=== PATIENT | female | born 1935 | race Caucasian/White ===

== ENCOUNTER 2016-08-20 15:07 | Emergency (ER) | payer BC ==
[~2016-08-20] VITALS: Ht 154.9 cm; Wt 69.0 kg
[~2016-08-20 15:07] MED LIST: ATEN-175 PO; CALC-51 PO; CHOL400C7 PO; HYDR25TA5 PO; MECL1TAB42 PO; MGNO400 PO; MULTTAB83 PO; POTA20TA13 PO; PSYL48.59 PO; SIMV20TA2 PO; TYL325X PO
[2016-08-20 15:10] VITALS: TEMP 36.4; Ht 154.9 cm; Wt 69.0 kg
[2016-08-20] MEDS ORDERED: RANI1TAB77 PO (15:23)
[2016-08-20] MEDS ORDERED: CHOL100027 PO (15:23)
[2016-08-20] MEDS ORDERED: IMD/2 PO (15:23)
[2016-08-20] MEDS ORDERED: LIDO/EPINEPHRINE/SOD BICARB 20 ML VIAL INFIL ONE (15:36)
--- NOTE | 2016-08-20 15:40 | DIAGNOSTIC IMAGING REPORT ---
LEFT FIFTH FINGER 3 VIEWS CLINICAL HISTORY: Fifth finger injury. FINDINGS: 3 views of the left fifth finger are obtained. No prior studies are available for comparison at the time of dictation. The skeletal structures are osteopenic. There is a questionable fracture through the midshaft of the fifth middle phalanx. No additional findings are concerning for fracture. There is posterior dislocation is seen at the fifth proximal interphalangeal joint with overlying soft tissue edema. Minimal arthritic change is noted at the fifth distal and a nodule joint. The fifth metacarpophalangeal joint is well-maintained. A ring is present on the fourth finger. IMPRESSION: 1. There is posterior dislocation at the fifth proximal interphalangeal joint with overlying soft tissue edema. 2. Question a fracture through the midshaft of the fifth middle phalanx. This could not be corroborated on the lateral view. 3. No additional findings are concerning for acute fracture. Electronically signed by: Norberto Trevino M.D. 08/20/2016 3:39 PM Dictated Date/Time: 08/20/2016 3:36 PM
[2016-08-20] MEDS ORDERED: XYLOCAINE 1%/SOD BICARB 20 ML VIAL INFIL ONE (15:45)
--- NOTE | 2016-08-20 15:49 | EMERGENCY ROOM VISIT NOTE ---
ED Visit Note First contact with patient: 15:14 I have seen and examined this patient with Carin Tinsley and generally agree with the treatment plan as discussed. Current/Historical Medications Scheduled Atenolol (Tenormin), 100 MG PO DAILY Calcium Carbonate-Vitamin D (Calcium), 2 TAB PO DAILY Cholecalciferol (Vitamin D 1000 Unit), 1,000 INTER.UNIT PO DAILY Hydrochlorothiazide (Hydrochlorothiazide), 12.5 MG PO DAILY Multiple Vitamin (Multi-Vitamin), 1 TAB PO DAILY Potassium Chloride Microencaps (Potassium Chloride Er), 60 MEQ PO DAILY Psyllium (Metamucil), 1 TBS PO DAILY Ranitidine HCl (Ranitidine [address]), 150 MG PO DAILYBB Simvastatin (Zocor), 20 MG PO QPM Scheduled PRN Loperamide Hcl (Imodium), 2 MG PO UD PRN for Diarrhea Meclizine Hcl (Meclizine Hcl), 25 MG PO DAILY PRN for DIZZINESS Allergies Coded Allergies: Sulfa Drugs (Verified Allergy, Unknown, "CAN'T REMEMBER, SO MANY YEARS", ) Vital Signs Date Time Temp Pulse Resp B/P Pulse Ox O2 Delivery O2 Flow Rate FiO2 08/20/16 15:10 36.4 56 18 154/71 98 Room Air Departure Information Referrals John Kinney M.D. (PCP) Patient Instructions My [facility]
--- NOTE | 2016-08-20 16:17 | DIAGNOSTIC IMAGING REPORT ---
LEFT FIFTH FINGER 3 VIEWS CLINICAL HISTORY: Postreduction examination. FINDINGS: 3 views of the left fifth finger are compared to study performed earlier the same day 08/20/2016. The skeletal structures are osteopenic. No fracture is seen. There has been episcopal of near-anatomic alignment at the fifth proximal interphalangeal joint. Minimal arthritic change is observed. Overlying soft tissue edema persists. IMPRESSION: 1. There has been successful reduction of the dislocated fifth proximal interphalangeal joint as compared to today's earlier study. 2. No fracture is identified. Electronically signed by: Norberto Trevino M.D. 08/20/2016 4:16 PM Dictated Date/Time: 08/20/2016 4:14 PM
--- NOTE | 2016-08-20 16:23 | EMERGENCY ROOM VISIT NOTE ---
ED Visit Note First contact with patient: 15:14 CHIEF COMPLAINT: Left fifth Finger injury today HISTORY OF PRESENT ILLNESS: This 80-year-old female presents the ER with chief complaint of left fifth finger injury. The patient states that she fell injuring her left fifth finger. She now states that it looks deformed. She denies any numbness and tingling in the distal portion of the finger. The patient denies any other injuries. REVIEW OF SYSTEMS: 6 system review was performed and was negative unless stated otherwise in history of present illness. PMH: The patient is healthy; hypertension SOCIAL HISTORY: The patient lives alone. The patient denies any tobacco use but admits to occasional alcohol use. PHYSICAL EXAM: Vital Signs: Were reviewed Reviewed Nurse's notes.GEN.: 80-year- old white female appears in no acute distress. MENTAL Status: Alert and oriented 3. LEFT FIFTH FINGER: There is an obvious deformity at the PIP joint of the finger with dorsal dislocation of the middle phalanx. The distal dislocated portion of the finger is pale but is sensate. Capillary refill is normal. EMERGENCY DEPARTMENT COURSE: The patient was evaluated. X-ray of the left fifth finger was ordered and interpreted by the radiologist and myself as below. LEFT FIFTH FINGER 3 VIEWS CLINICAL HISTORY: Fifth finger injury. FINDINGS: 3 views of the left fifth finger are obtained. No prior studies are available for comparison at the time of dictation. The skeletal structures are osteopenic. There is a questionable fracture through the midshaft of the fifth middle phalanx. No additional findings are concerning for fracture. There is posterior dislocation is seen at the fifth proximal interphalangeal joint with overlying soft tissue edema. Minimal arthritic change is noted at the fifth distal and a nodule joint. The fifth metacarpophalangeal joint is well-maintained. A ring is present on the fourth finger. IMPRESSION: 1. There is posterior dislocation at the fifth proximal interphalangeal joint with overlying soft tissue edema. 2. Question a fracture through the midshaft of the fifth middle phalanx. This could not be corroborated on the lateral view. 3. No additional findings are concerning for acute fracture. Electronically signed by: Norberto Trevino M.D. The patient was informed of the findings. PROCEDURE: The finger was prepped with Betadine 3. A digital block was performed using 1% buffered lidocaine. Once adequate anesthesia was obtained, The joint was reduced by applying a steady and rapid axial distraction of the dislocated portion at the PIP joint while the proximal portion was stabilized with the other hand. Postreduction the patient was able to extend the finger on her own but then it Re-dislocating. I finally got the joint stabilized. I told the patient not to move her finger until we obtained x-rays and can splint her. The patient was evaluated by Dr. Ramirez who agreed with treatment plan. Postreduction films were and were interpreted by the radiologist as below. DIAGNOSTICS:LEFT FIFTH FINGER 3 VIEWS CLINICAL HISTORY: Postreduction examination. FINDINGS: 3 views of the left fifth finger are compared to study performed earlier the same day 08/20/2016. The skeletal structures are osteopenic. No fracture is seen. There has been anabaptist of near-anatomic alignment at the fifth proximal interphalangeal joint. Minimal arthritic change is observed. Overlying soft tissue edema persists. IMPRESSION: 1. There has been successful reduction of the dislocated fifth proximal interphalangeal joint as compared to today's earlier study. 2. No fracture is identified. Electronically signed by: Norberto Trevino M.D. 08/20/2016 4:16 PM The patient was informed of the findings. The patient was placed in a cage splint and discharged home in stable condition. DIAGNOSIS: Dislocated PIP joint of the left fifth finger DISCHARGE INSTRUCTIONS & TREATMENT: Ice and elevation for 24 hours. Tylenol and/or ibuprofen as needed for pain. Keep finger in splint except for bathing until evaluated by orthopedics. Call tomorrow for follow-up appointment. Current/Historical Medications Scheduled Atenolol (Tenormin), 100 MG PO DAILY Calcium Carbonate-Vitamin D (Calcium), 2 TAB PO DAILY Cholecalciferol (Vitamin D 1000 Unit), 1,000 INTER.UNIT PO DAILY Hydrochlorothiazide (Hydrochlorothiazide), 12.5 MG PO DAILY Multiple Vitamin (Multi-Vitamin), 1 TAB PO DAILY Potassium Chloride Microencaps (Potassium Chloride Er), 60 MEQ PO DAILY Psyllium (Metamucil), 1 TBS PO DAILY Ranitidine HCl (Ranitidine [address]), 150 MG PO DAILYBB Simvastatin (Zocor), 20 MG PO QPM Scheduled PRN Loperamide Hcl (Imodium), 2 MG PO UD PRN for Diarrhea Meclizine Hcl (Meclizine Hcl), 25 MG PO DAILY PRN for DIZZINESS Allergies Coded Allergies: Sulfa Drugs (Verified Allergy, Unknown, "CAN'T REMEMBER, SO MANY YEARS", ) Vital Signs Date Time Temp Pulse Resp B/P Pulse Ox O2 Delivery O2 Flow Rate FiO2 08/20/16 15:10 36.4 56 18 154/71 98 Room Air Departure Information Referrals John Kinney M.D. (PCP) Patient Instructions My [facility]
[2016-08-20 16:51] VITALS: BP 145/86; PULSE 62; O2SAT 96
== END 2016-08-20 16:52 | disposition home or self-care (01) ==
LOC: C.EDB 15:08 → C.EDD 16:52
DX: S63.257A Unspecified dislocation of left little finger, initial encounter (principal); W19.XXXA Unspecified fall, initial encounter; I10 Essential (primary) hypertension; Z79.899 Other long term (current) drug therapy

== ENCOUNTER → 2016-11-08 | Outpatient (CLI) | payer BC ==
[~2016-11-08] MED LIST changes: +CHOL100027 PO; -CHOL400C7 PO; +IMD/2 PO; -MGNO400 PO; +RANI1TAB77 PO; -TYL325X PO
[2016-11-08 13:34] LABS: ESTIMATED AVERAGE GLUCOSE 123 mg/dl; HA1C FLAG Normal (Normal)
[2016-11-08 13:53] LABS: BLOOD UREA NITROGEN 22 mg/dl (7-18); CALCIUM 9.3 mg/dl (8.5-10.1); CARBON DIOXIDE 31 mmol/L (21-32); CHLORIDE 106 mmol/L (98-107); GLUCOSE 98 mg/dl (70-99); POTASSIUM 3.8 mmol/L (3.5-5.1); SODIUM 143 mmol/L (136-145)
== END | disposition home or self-care (01) ==
LOC: C.LABBC 10:08
PROVIDERS: ATTEND Internal Medicine Geriatric Medicine
DX: I10 Essential (primary) hypertension (principal); R73.9 Hyperglycemia, unspecified; R31.9 Hematuria, unspecified; E78.5 Hyperlipidemia, unspecified; E04.2 Nontoxic multinodular goiter

== ENCOUNTER → 2016-11-21 | Outpatient (CLI) | payer BC ==
--- NOTE | 2016-11-21 12:23 | DIAGNOSTIC IMAGING REPORT ---
THYROID ULTRASOUND CLINICAL HISTORY: Multinodular thyroid. COMPARISON STUDY: Thyroid ultrasound May 21, 2015. TECHNIQUE: Sonography of the thyroid gland was performed. FINDINGS: The right thyroid lobe measures 5.4 x 1.5 x 1.6 cm and the left lobe measures 3.8 x 1.5 x 1 cm. Note is made of a 2.1 cm echogenic nodule within the lower pole of the right thyroid lobe which is similar to exam of May 21, 2015. This nodule was biopsied on exam of July 10, 2014. A 6 mm cystic left lobe nodule has benign imaging characteristics. This is similar to prior exam. IMPRESSION: No change in several thyroid nodules since exam of May 21, 2015. Electronically signed by: Orville Anders M.D. 11/21/2016 12:22 PM Dictated Date/Time: 11/21/2016 12:20 PM
== END | disposition home or self-care (01) ==
LOC: C.ULTRBC 10:08
PROVIDERS: ATTEND Internal Medicine Geriatric Medicine
DX: E04.2 Nontoxic multinodular goiter (principal)

== ENCOUNTER → 2017-06-28 | Outpatient (CLI) | payer BC ==
[2017-06-28 13:12] LABS: BASO % 0.3 %; BASO ABS # 0.02 K/uL (0-0.2); EOS % 1.4 %; EOS ABS # 0.08 K/uL (0-0.5); HEMATOCRIT 42.5 % (37-47); IG# 0.01 K/uL (0.00-0.02); LYMPH % 35.8 %; LYMPH ABS # 2.08 K/uL (1.2-3.4); MEAN CORPUSCULAR HGB CONC 32.9 g/dl (32-36); MEAN PLATELET VOLUME 9.8 fL (7.4-10.4); MONO ABS # 0.58 K/uL (0.11-0.59); NEUT % 52.3 %; NEUT ABS # 3.04 K/uL (1.4-6.5); PLATELET COUNT 206 K/uL (130-400); RED CELL DISTRIBUTION WIDTH CV 13.2 % (11.5-14.5); RED CELL DISTRIBUTION WIDTH SD 45.2 fL (36.4-46.3); WHITE BLOOD COUNT 5.81 K/uL (4.8-10.8)
[2017-06-28 14:11] LABS: ALBUMIN 3.5 gm/dl (3.4-5.0); ALT/SGPT 22 U/L (12-78); AST/SGOT 17 U/L (15-37); BLOOD UREA NITROGEN 27 mg/dl (7-18); CALCIUM 9.4 mg/dl (8.5-10.1); CARBON DIOXIDE 30 mmol/L (21-32); CREATININE 0.91 mg/dl (0.60-1.20); GLUCOSE 91 mg/dl (70-99); POTASSIUM 3.9 mmol/L (3.5-5.1); SODIUM 138 mmol/L (136-145)
[2017-06-28 14:26] LABS: ALKALINE PHOSPHATASE 58 U/L (45-117); CHOLESTEROL 117 mg/dl (0-200); LDL CHOLESTEROL CALCULATED 40 mg/dl; TOTAL PROTEIN 7.4 gm/dl (6.4-8.2)
== END | disposition home or self-care (01) ==
LOC: C.LABBC 10:14
PROVIDERS: ATTEND Internal Medicine Geriatric Medicine
DX: I10 Essential (primary) hypertension (principal); R73.9 Hyperglycemia, unspecified; E78.5 Hyperlipidemia, unspecified; E04.2 Nontoxic multinodular goiter

== ENCOUNTER → 2017-10-24 | Outpatient (CLI) | payer BC ==
[2017-10-24 13:56] LABS: BLOOD UREA NITROGEN 23 mg/dl (7-18); CALCIUM 9.8 mg/dl (8.5-10.1); CARBON DIOXIDE 32 mmol/L (21-32); CREATININE 0.87 mg/dl (0.60-1.20); GLUCOSE 91 mg/dl (70-99); POTASSIUM 4.1 mmol/L (3.5-5.1); SODIUM 140 mmol/L (136-145); URIC ACID 5.6 mg/dl (2.6-7.2)
== END | disposition home or self-care (01) ==
LOC: C.LABBC 10:57
PROVIDERS: ATTEND Internal Medicine Geriatric Medicine
DX: I10 Essential (primary) hypertension (principal); M10.9 Gout, unspecified